=== PATIENT | female | born 1935 | race Caucasian/White ===

== ENCOUNTER 2016-07-31 17:26 | Inpatient (IN) | payer MEDICARE, BC ==
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
--- NOTE | ~2016-07-31 | CR151 ---
[facility] A Service of [facility] & [facility] RADIOLOGY TEXT RESULTS PATIENT: NILE CORRALES LOCATION: [facility] 474 : 36 UNIT #: [id number] AGE: [address]: Ronn Anderson MD SEX: F ORDER DR: [id number] [facility] [address] [place], [place] [address] [id number] I MR#: [id number] Acc #: [id number] NAME: NILE CORRALES : 1935 SEX: F STUDY DATE/TIME: 07/31/2016 18:03 UNIT: [facility] ROOM: [facility] STUDY DESCRIPTION: CR Hip Min 2 Views Rt Attending Physician: Ronn Anderson M.D. Referring Physician: Chris Jones M.D. Ordering Physician: Radha Sibley M.D. Primary Care Physician: Chris Jones M.D. MEDICAL IMAGING REPORT This report is preliminary unless electronic signature is present EXAM AP pelvis with cross-table lateral view of the right hip 07/31/2016 HISTORY 81-year-old female right hip pain after falling today. Cannot move leg. FINDINGS There is a subcapital impacted fracture of the right proximal femur. No hip dislocation is seen. There is mild angulation at the fracture site in anterior direction, best seen on the cross-table lateral view. There is lower lumbar levoscoliosis. No sacroiliac joint consensus diastasis. Left hip appears unremarkable. IMPRESSION Impacted, mildly angulated subcapital fracture of the right femoral neck without hip dislocation. Dictated by... Denisha Teran M.D. THIS IS AN ELECTRONICALLY VERIFIED REPORT Denisha Teran M.D. at 08/01/2016 2:42 PM LLH/pcl TD: 07/31/2016 23:05 JOB #: [id number] MEDICAL IMAGING REPORT COPY
--- NOTE | ~2016-07-31 | CO ---
Unit #: [id number] #: [id number] Patient: NILE CORRALES [id number] [address] [place], [place] [address] [id number] I MR#: [id number] NAME: NILE CORRALES ROOM: 474 Age: 81 Sex: F Admission Date: 07/31/2016 : 1935 Attending Physician: Ronn Anderson M.D. Primary Care Physician: Chris Jones M.D. Consultation Date: 08/01/2016 CONSULTATION REPORT HISTORY OF PRESENT ILLNESS Ms. Corrales is a pleasant 81-year-old female, who was complaining of profound fatigue and saw Dr. Anderson who on evaluation was found that she had severe iron deficiency anemia with a hemoglobin of 5.2, and serum iron less than 5. The patient denies any hematemesis, hematochezia, melena, hematuria, hemoptysis, or menorrhagia. States she has been eating a regular diet. She has been complaining of some mild left upper quadrant pain, but has not had any nausea or vomiting and denies fever or chills. She was admitted and transfused after hemoglobin of 8.6 today. PAST MEDICAL HISTORY Migraine headaches, she has had a temporal artery biopsy, hysterectomy, appendectomy, right oophorectomy, cataract surgery, foot surgery, hypertension, hyperlipidemia, breast cancer, bilateral foot neuromas, skin lesions removed, colonoscopy with polypectomy, previous ectopic . ALLERGIES No allergies to medication. MEDICATIONS Documented on the med reconciliation sheet. FAMILY HISTORY Hypertension. SOCIAL HISTORY Previous smoker. Otherwise, her is in the [facility] and she lives alone. REVIEW OF SYSTEMS As above. PHYSICAL EXAMINATION GENERAL: She is awake, alert, oriented. VITAL SIGNS: Temperature is 98.7, pulse 98 and regular, respirations 16, blood pressure 131/60. HEENT: Unremarkable. CARDIAC: Regular rhythm. LUNGS: Clear. ABDOMEN: Soft. She does guard in the left upper quadrant, but there is no mass or rebound tenderness. EXTREMITIES: No edema. NEUROLOGIC: Grossly intact. Unit #: [id number] #: [id number] Patient: NILE CORRALES DIAGNOSTIC STUDIES LABORATORY RESULTS: Basic metabolic panel was within normal limits. INR is 1.1. Initial hemoglobin 5.2, after transfusion it is 8.6. Serum iron less than 5. Platelets were adequate 385,000. ASSESSMENT AND PLAN The patient with profound and symptomatic iron deficiency anemia. The patient will need endoscopic evaluation. I discussed that with the patient. She has had previous endoscopic evaluation, so she understands and agrees to proceed. Bowel prep has been ordered. Dictated by... Chris Adame M.D. NA/jono TD: 08/01/2016 07:30 JOB #: [id number] CONSULTATION REPORT X Chris Adame MD X CONSULTATION REPORT
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
--- NOTE | ~2016-07-31 | EKG ---
PATIENT: NILE CORRALES UNIT #: [id number] Ventricular Rate: 101 BPM Atrial Rate: 101 BPM P-R Interval: 166 ms QRS Duration: 94 ms Q-T Interval: 348 ms QTC Calculation(Bezet): 451 ms P [place]: 65 degrees Calculated R [place]: -12 degrees Calculated T [place]: 50 degrees Diagnosis Line: Sinus tachycardia Diagnosis Line: Otherwise normal ECG Diagnosis Line: When compared with ECG of 20-JUL-2013 14:05, Diagnosis Line: No significant change was found Diagnosis Line: Confirmed by JUNE COLLADO MD ([id number]) on 08/01/2016 Diagnosis Line: 6:23:02 PM INTERPRETING MD: TOBIAS RAPHAEL
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
--- NOTE | ~2016-07-31 | OR ---
Unit #: [id number] #: [id number] Patient: NILE CORRALES [id number] [address] [address] [id number] I MR#: [id number] NAME: NILE CORRALES ROOM: [facility] Date of Procedure: 08/01/2016 Admission Date: 07/31/2016 Surgeon: Vishal Donaldson M.D. : 1935 Attending Physician: Ronn Anderson M.D. Referring Physician: Chris Jones M.D. Primary Care Physician: Chris Jones M.D. OPERATIVE REPORT PREOPERATIVE DIAGNOSIS Right displaced femoral neck fracture. POSTOPERATIVE DIAGNOSIS Right displaced femoral neck fracture. PROCEDURE PERFORMED Right hip hemiarthroplasty via posterior approach. IMPLANTS Cara Avenir size 5 press-fit stem with a 47 mm unipolar head and -4 mm neck adaptor. AWARD MACHINE OPERATOR Kylie Lambert APRN, SARA. ANESTHESIA General. ESTIMATED BLOOD LOSS 100 mL. COMPLICATIONS None apparent. DRAINS None. SPECIMENS Femoral head to Pathology. INDICATIONS FOR PROCEDURE Ms. Corrales is an 81-year-old female with a history of displaced right femoral neck fracture due to ground level fall. We discussed the right hip hemiarthroplasty. The risks, benefits, and alternatives have been reviewed as was expected recovery. The patient and family elected to proceed. DESCRIPTION OF PROCEDURE The patient was identified in the preoperative holding area. The operative site was marked. The patient was brought to the operating room on her hospital bed. General anesthetic was induced. She was then Unit #: [id number] #: [id number] Patient: NILE CORRALES transferred to the operating table and placed in the lateral decubitus position on a pegboard. All bony prominences were padded. The right hip was prepped and draped in sterile fashion. A standard posterior approach was performed. Then skin was incised sharply and dissection carried down to the fascia. This was divided in line with the skin incision. The fibers of gluteus isabella were bluntly dissected. The underlying bursa was excised. The gluteus medius was identified and dissected with a Michelle elevator. A cobra retractor was placed. The piriformis was identified and released off the piriformis fossa. This was tagged with Ethibond for later repair. The Cobra was then advanced deep to the gluteus minimus. The underlying hip capsule was identified. This was intact. A T-type capsulotomy was performed. The femoral neck was readily identifiable. The femoral head was removed with a 3-prong femoral head extractor. This was sized to a size 47. We trialed a 47 and 48 and selected a size 47 mm head. The femoral neck was then recut approximately 1 cm superior to the lesser trochanter. The hip was then placed in the position of canal preparation. Any remaining soft tissues removed out of the lateral shoulder area. A box osteotome was used to open the femur and femoral canal. This femur was then reamed with a lateralizing rat-tail rasp by hand and then sequentially broached up to a size 4. The size 4 had rotational stability, but then did countersink fairly significantly. We ultimately broached up to a size 5 and trialed up a size 5. We selected the neutral neck length initially. The real stem was then opened and impacted in place. During impaction of the real stem this did not seat quite as deeply as the broach had. It was felt that this was secondary to a slight change inversion with the real implant being slightly less anteversion than the trial. The attempts to back this out to remove this were difficult and it was felt to be at risk for fracturing the femur or further complication. We therefore left the stem in its position, which was satisfactory. We trialed both a neutral and -4. The -4 was stable and the neutral was slightly too long. We therefore dropped down to the -4 neck length adapter for the real implant. This was impacted to the real head, was then impacted in place with again the -4 neck length adapter. The hip was reduced. The hip was stable at 90 degrees of flexion, 10 degrees of adduction, and 60 degrees of internal rotation. The hip was stable to gravity, internal rotation test as well. The wound was then washed with a dilute Betadine solution followed by pulsatile lavage. The hip capsule was closed with three #5 Ethibond sutures. The piriformis was reapproximated through a bone tunnel in the greater trochanter. The fascia was then closed with 0 Vicryl followed by 2-0 Vicryl in the subcutaneous tissue and hanny in the skin. Sterile dressings were applied. The patient was placed into a hip abduction pillow. DISPOSITION Stable to the recovery room. Dictated by... Veda Russell/jono TD: 08/02/2016 08:06 JOB #: [id number] Unit #: [id number] #: [id number] Patient: NILE CORRALES OPERATIVE REPORT X Vishal Donaldson MD X PROCEDURE OPERATIVE NOTE
--- NOTE | ~2016-07-31 | CR72 ---
[facility] A Service of [facility] RADIOLOGY TEXT RESULTS PATIENT: NILE CORRALES LOCATION: [facility] 474-01 : [birth year] UNIT #: [id number] AGE: [address]: Ronn Anderson MD SEX: F ORDER DR: [id number] [facility] [address] [place], [place] [address] [id number] I MR#: [id number] Acc #: [id number] NAME: NILE CORRALES : 1935 SEX: F STUDY DATE/TIME: 07/31/2016 19:40 UNIT: [facility] ROOM: [facility] STUDY DESCRIPTION: CR Chest Single View Portable Attending Physician: Ronn Anderson M.D. Referring Physician: Chris Jones M.D. Ordering Physician: Ronn Anderson M.D. Primary Care Physician: Chris Jones M.D. MEDICAL IMAGING REPORT This report is preliminary unless electronic signature is present EXAM AP portable chest 07/31/2016 at 19:40 HISTORY Fell. Right hip pain today. Preop evaluation for hip surgery. COMPARISON AP portable chest radiograph 07/11/2015. FINDINGS Rounded noncalcified nodular-type density measuring 2.5 cm projects in the right upper lobe. There is a right apical, somewhat nodular thickening and/or airspace disease. These findings are new since October 2008. There are surgical clips in the region right axilla. Heart size is within normal limits. No pleural effusion is seen. IMPRESSION 1. Nodular-type densities are demonstrated within the bilateral lung apices, right greater left. The findings appear new since 07/18/2008. Malignancy cannot be excluded. Dedicated CT chest (preferable with IV contrast if the patient can tolerate) is recommended. 2. Not mentioned above, radiopaque densities project over the right breast and/or chest wall soft tissues thought to represent artifacts external to the patient. Dictated by... Denisha Teran M.D. THIS IS AN ELECTRONICALLY VERIFIED REPORT [facility] A Service of [facility] RADIOLOGY TEXT RESULTS PATIENT: NILE CORRALES LOCATION: [facility] 474-01 : [birth year] UNIT #: [id number] AGE: [address]: Ronn Anderson MD SEX: F ORDER DR: Denisha Teran M.D. at 08/01/2016 2:42 PM LENCHO/karrie TD: 07/31/2016 23:43 JOB #: [id number] MEDICAL IMAGING REPORT COPY
[~2016-07-31 17:26] MED LIST: ACCUPRIL PO; ACCUPRIL40 MG PO; ADVIL200 M1 PO; AMLODIPINE BES2.5 MG PO; ANASTROZOLE1 MG PO; BLOOD PRESSURE; CALAN PO; CERTAGEN PO; CHOLESTEROL; DILTIAZEM 24HR180 M1 PO; LIPITOR20 MG PO; LOPRESSOR PO; LORTAB 101 TAB 10/5 DOB; LORTAB 7.5-5001 TAB PO; METFORMIN PO; METOPROLOL SUCC50 MG PO; MULTI-DAY VITAM1 TAB PO; NEXIUM PO; OMEPRAZOLE20 M1 PO; OMNICEF PO; PRILOSEC20 MG PO; TYLENOL ALLERGY1 T13 PO; TYLENOL SINUS C1 TAB PO; TYLOX 5/500 CAP1 CAP PO; VIT B12; VIT E PO; VITAL-D RX TABL1 TAB PO; VITAMIN B122500 MC1; VITAMIN D1000 UNI1 PO; ZETIA PO; ZOCOR PO; [UNRECOGNIZED DRUG - OTHER]; [UNRECOGNIZED DRUG - REMARK] PO
[2016-07-31 17:29] LABS: BASOPHIL% 0.3 % (0-2.5); EOSINOPHIL% 0.3 % (0.0-7.0); HEMATOCRIT 18.4 % (35.0-45.0); LYMPHOCYTE# 1.2 X10e3 (1.0-3.5); LYMPHOCYTE% 17.3 % (17.0-45.0); MEAN CELL VOLUME 56.7 FL (83-96); MEAN CORPUSCULAR HEMOGLOBIN 16.1 PG (28-34); MEAN CORPUSCULAR HGB CONC 28.4 g/dL (30-36); MEAN PLATELET VOLUME 7.3 FL (6.5-11.5); MONOCYTE# 0.5 X10e3 (0-1.0); MONOCYTE% 7.8 % (3.0-12.0); NEUTROPHIL# 5.1 X10e3 (1.5-7.1); NEUTROPHIL% 74.3 % (40-75); PLATELET COUNT 385 X10e3 (140-420); RED BLOOD COUNT 3.24 X10e (3.90-5.30); RED CELL DISTRIBUTION WIDTH 19.8 % (11.0-15.5); WHITE BLOOD COUNT 6.8 X10e3 (4.0-10.5)
[2016-07-31 17:35] LABS: DIFF IND YES; HEMOGLOBIN 5.2 gm/dL (12.0-16.0)
[2016-07-31 17:37] LABS: INR 1.1; PROTHROMBIN TIME (PATIENT) 11.2 SECONDS (9.6-11.5)
[2016-07-31 17:52] LABS: BLOOD UREA NITROGEN 18 mg/dL (9-23); BUN/CREATININE RATIO 25.71; CALCIUM SERUM 8.8 mg/dL (8.4-10.2); CARBON DIOXIDE 26 mmol/L (22-31); CHLORIDE 108 mmol/L (100-111); CREATININE SERUM 0.7 mg/dL (0.6-1.4); GLOM FILT RATE Estimated ABOVE60 mL/min (>60); GLUCOSE FASTING 108 mg/dL (70-110); POTASSIUM 3.7 mmol/L (3.5-5.1); SODIUM 137 mmol/L (135-145)
[2016-07-31 18:08] LABS: NUCLEATED RED BLOOD CELL 1 /100 (0); PLATELET ESTIMATE NORMAL (NORMAL)
[2016-07-31 18:09] LABS: ANISOCYTOSIS SL
[2016-07-31 18:10] LABS: ELLIPTOCYTES PRESENT
[2016-07-31 18:11] LABS: POC - TROPONIN <0.05 ng/mL (<=0.05)
[2016-07-31 20:13] LABS: FOLATE (FOLIC ACID) 12.4 ng/mL (>5.8); TOTAL IRON BINDING CAPACITY 453 ug/dL (269-535); TRANSFERRIN 324 mg/dL (192-382)
[2016-07-31 20:15] LABS: IRON SERUM <5 ug/dL (28-170); TRANSFERRIN SATURATION 1 % (20-50)
[2016-08-01 05:30] LABS: HEMATOCRIT 27.7 % (35.0-45.0)
[2016-08-01 05:33] LABS: HEMOGLOBIN 8.6 gm/dL (12.0-16.0)
[2016-08-01 14:41] LABS: URINE SOURCE CLEAN CATCH
[2016-08-01 14:50] LABS: URINE APPEARANCE CLOUDY; URINE BILIRUBIN NEG (NEG); URINE BLOOD NEG (NEG); URINE COLOR YELLOW; URINE GLUCOSE NEG (NEG); URINE KETONE NEG (NEG); URINE LEUKOCYTE ESTERASE 2+ (NEG); URINE NITRATE NEG (NEG); URINE PROTEIN NEG (NEG); URINE SPECIFIC GRAVITY 1.018 (1.003-1.035)
[2016-08-01 14:52] LABS: CULTURE INDICATED? YES; URINE BACTERIA AUWI 4+ (NEGATIVE); URINE SQUAMOUS EPITHELIAL CELL NONE SEEN /[HPF]; UWBCS1 AUWI 25-50 (0-5)
[2016-08-01 19:47] LABS: HEMATOCRIT 28.6 % (35.0-45.0); HEMOGLOBIN 8.7 gm/dL (12.0-16.0); MEAN CORPUSCULAR HEMOGLOBIN 20.2 PG (28-34); MEAN CORPUSCULAR HGB CONC 30.2 g/dL (30-36); MEAN PLATELET VOLUME 8.4 FL (6.5-11.5); RED BLOOD COUNT 4.29 X10e (3.90-5.30); RED CELL DISTRIBUTION WIDTH 28.5 % (11.0-15.5)
[2016-08-01 19:52] LABS: MEAN CELL VOLUME 66.8 FL (83-96); WHITE BLOOD COUNT 13.2 X10e3 (4.0-10.5)
[2016-08-02 03:57] LABS: BASOPHIL% 0.1 % (0-2.5); HEMATOCRIT 27.5 % (35.0-45.0); HEMOGLOBIN 8.4 gm/dL (12.0-16.0); LYMPHOCYTE# 0.6 X10e3 (1.0-3.5); MEAN CELL VOLUME 66.9 FL (83-96); MEAN CORPUSCULAR HEMOGLOBIN 20.4 PG (28-34); MEAN CORPUSCULAR HGB CONC 30.5 g/dL (30-36); MEAN PLATELET VOLUME 8.8 FL (6.5-11.5); MONOCYTE# 0.7 X10e3 (0-1.0); MONOCYTE% 6.1 % (3.0-12.0); NEUTROPHIL# 10.4 X10e3 (1.5-7.1); NEUTROPHIL% 88.8 % (40-75); PLATELET COUNT 275 X10e3 (140-420); RED BLOOD COUNT 4.11 X10e (3.90-5.30); RED CELL DISTRIBUTION WIDTH 28.7 % (11.0-15.5); WHITE BLOOD COUNT 11.7 X10e3 (4.0-10.5)
[2016-08-02 03:58] LABS: DIFF IND NO
[2016-08-02 04:21] LABS: BLOOD UREA NITROGEN 8 mg/dL (9-23); BUN/CREATININE RATIO 13.33; CALCIUM SERUM 8.9 mg/dL (8.4-10.2); CARBON DIOXIDE 25 mmol/L (22-31); CHLORIDE 102 mmol/L (100-111); CREATININE SERUM 0.6 mg/dL (0.6-1.4); GLOM FILT RATE Estimated ABOVE60 mL/min (>60); GLUCOSE FASTING 149 mg/dL (70-110); POTASSIUM 4.7 mmol/L (3.5-5.1); SODIUM 135 mmol/L (135-145)
[2016-08-03 03:43] LABS: HEMATOCRIT 24.3 % (35.0-45.0); HEMOGLOBIN 7.4 gm/dL (12.0-16.0); MEAN CELL VOLUME 67.8 FL (83-96); MEAN CORPUSCULAR HEMOGLOBIN 20.7 PG (28-34); MEAN CORPUSCULAR HGB CONC 30.6 g/dL (30-36); MEAN PLATELET VOLUME 8.7 FL (6.5-11.5); RED BLOOD COUNT 3.59 X10e (3.90-5.30); RED CELL DISTRIBUTION WIDTH 29.3 % (11.0-15.5); WHITE BLOOD COUNT 10.9 X10e3 (4.0-10.5)
[2016-08-03 04:04] LABS: BLOOD UREA NITROGEN 8 mg/dL (9-23); CALCIUM SERUM 8.6 mg/dL (8.4-10.2); CARBON DIOXIDE 24 mmol/L (22-31); CHLORIDE 104 mmol/L (100-111); CREATININE SERUM 0.5 mg/dL (0.6-1.4); GLOM FILT RATE Estimated ABOVE60 mL/min (>60); GLUCOSE FASTING 131 mg/dL (70-110); POTASSIUM 4.1 mmol/L (3.5-5.1); SODIUM 133 mmol/L (135-145)
[2016-08-04 02:54] LABS: HEMATOCRIT 30.3 % (35.0-45.0); MEAN CORPUSCULAR HEMOGLOBIN 21.9 PG (28-34); MEAN CORPUSCULAR HGB CONC 31.3 g/dL (30-36); MEAN PLATELET VOLUME 8.4 FL (6.5-11.5); RED BLOOD COUNT 4.34 X10e (3.90-5.30); RED CELL DISTRIBUTION WIDTH 30.5 % (11.0-15.5); WHITE BLOOD COUNT 9.7 X10e3 (4.0-10.5)
[2016-08-04 02:55] LABS: HEMOGLOBIN 9.5 gm/dL (12.0-16.0)
[2016-08-04 03:22] LABS: BLOOD UREA NITROGEN 8 mg/dL (9-23); CALCIUM SERUM 8.5 mg/dL (8.4-10.2); CARBON DIOXIDE 25 mmol/L (22-31); CHLORIDE 100 mmol/L (100-111); CREATININE SERUM 0.5 mg/dL (0.6-1.4); GLOM FILT RATE Estimated ABOVE60 mL/min (>60); GLUCOSE FASTING 112 mg/dL (70-110); MAGNESIUM 2.1 mg/dL (1.6-3.0); POTASSIUM 3.9 mmol/L (3.5-5.1); SODIUM 131 mmol/L (135-145)
[2016-08-05 03:35] LABS: URINE SOURCE CLEAN CATCH
[2016-08-05 03:40] LABS: URINE APPEARANCE CLOUDY; URINE BILIRUBIN NEG (NEG); URINE BLOOD 2+ (NEG); URINE COLOR DK YELLOW; URINE GLUCOSE NEG (NEG); URINE KETONE NEG (NEG); URINE LEUKOCYTE ESTERASE 2+ (NEG); URINE NITRATE NEG (NEG); URINE PH 6.5 (5-8); URINE PROTEIN TRACE (NEG); URINE SPECIFIC GRAVITY 1.022 (1.003-1.035)
[2016-08-05 03:42] LABS: URINE BACTERIA AUWI 1+ (NEGATIVE); URINE SQUAMOUS EPITHELIAL CELL NONE SEEN /[HPF]; UWBCS1 AUWI 50-100 (0-5)
[2016-08-05 04:18] LABS: BASOPHIL% 0.2 % (0-2.5); EOSINOPHIL% 0.6 % (0.0-7.0); HEMOGLOBIN 9.8 gm/dL (12.0-16.0); LYMPHOCYTE# 0.6 X10e3 (1.0-3.5); LYMPHOCYTE% 7.6 % (17.0-45.0); MEAN CELL VOLUME 70.9 FL (83-96); MEAN CORPUSCULAR HEMOGLOBIN 22.3 PG (28-34); MEAN CORPUSCULAR HGB CONC 31.5 g/dL (30-36); MEAN PLATELET VOLUME 8.7 FL (6.5-11.5); MONOCYTE# 0.9 X10e3 (0-1.0); MONOCYTE% 10.9 % (3.0-12.0); NEUTROPHIL# 6.4 X10e3 (1.5-7.1); NEUTROPHIL% 80.7 % (40-75); PLATELET COUNT 240 X10e3 (140-420); RED BLOOD COUNT 4.37 X10e (3.90-5.30); RED CELL DISTRIBUTION WIDTH 31.5 % (11.0-15.5); WHITE BLOOD COUNT 7.9 X10e3 (4.0-10.5)
[2016-08-05 04:19] LABS: DIFF IND NO
[2016-10-01] MEDS ORDERED: MULTI VITAMIN1 EACH PO (15:39)
[2016-10-01] MEDS ORDERED: HYDROCODON-ACE1 EAC7 PO (15:39)
[2016-10-01] MEDS ORDERED: FERROUS GLUCON324 M2 PO (15:40)
[2016-10-01] MEDS ORDERED: SENNA-S TABLET1 EAC1 PO (15:44)
[2016-11-15] MEDS ORDERED: ALEVE220 M1 PO (12:31)
== END 2016-08-05 13:25 | DRG 470 ==
LOC: CED 17:26 → CEDOF 19:04 → C4C 22:17
PROVIDERS: Emergency Medicine; Internal Medicine; Orthopaedic Surgery
PROC: 30233N1 Transfusion of Nonautologous Red Blood Cells into Peripheral Vein, Percutaneous Approach (ICD-10-PCS; 2016-07-31)
PROC: 0SRR0JA Replacement of Right Hip Joint, Femoral Surface with Synthetic Substitute, Uncemented, Open Approach (ICD-10-PCS; principal; 2016-08-01 13:00)
DX: S72.001A Fracture of unspecified part of neck of right femur, initial encounter for closed fracture (principal); N39.0 Urinary tract infection, site not specified; I10 Essential (primary) hypertension; W01.0XXA Fall on same level from slipping, tripping and stumbling without subsequent striking against object, initial encounter; Z91.041 Radiographic dye allergy status; Z85.3 Personal history of malignant neoplasm of breast; Z98.42 Cataract extraction status, left eye; Z98.41 Cataract extraction status, right eye; Z90.710 Acquired absence of both cervix and uterus; G43.909 Migraine, unspecified, not intractable, without status migrainosus; E78.5 Hyperlipidemia, unspecified; M19.90 Unspecified osteoarthritis, unspecified site; Z87.891 Personal history of nicotine dependence; D50.9 Iron deficiency anemia, unspecified; Z86.010 Personal history of colon polyps; Z88.1 Allergy status to other antibiotic agents; R91.8 Other nonspecific abnormal finding of lung field
CPT/HCPCS: 36415; 71010; 71250; 72072; 72170; 73130; 73502; 80048; 81003; 82553; 82607; 82746; 83540; 83550; 83735; 84484; 85014; 85018; 85025; 85027; 85610; 86850; 86900; 86901; 86923; 87086; 93005; 94760; 96374; 96375; 97110; 97116; 97163; 97530; 99284; 99285; C1776; G8978-GP; G8979-GP; J0690; J0696; J1100; J1650; J2250; J2270; J2370; J2405; J2765; J2916; J3010; P9016

== ENCOUNTER → 2016-10-03 | Day surgery (SDC) | payer MEDICARE, BC ==
[~2016-10-03] MED LIST changes: +ALEVE220 M1 PO; +FERROUS GLUCON324 M2 PO; +HYDROCODON-ACE1 EAC7 PO; +MULTI VITAMIN1 EACH PO; +SENNA-S TABLET1 EAC1 PO
--- NOTE | ~2016-10-03 | OR ---
Unit #: [id number] #: [id number] Patient: NILE CORRALES [id number] [address] [place], [place] [address] [id number] O MR#: [id number] NAME: NILE CORRALES ROOM: Date of Procedure: 10/03/2016 Admission Date: 10/03/2016 Surgeon: Bruce Triplett Jr., M.D. : 1935 Attending Physician: Bruce Triplett Jr., M.D. Primary Care Physician: Chris Jones M.D. OPERATIVE REPORT INDICATIONS FOR PROCEDURE The patient is an 81-year-old white female with a known past history of breast cancer and she has remained free of disease with respect to this. She has had some recent problems with dysphagia as well as anemia and it was felt she needed upper and lower endoscopy. She has had no recent scopes. PREOPERATIVE DIAGNOSES Dysphagia, possible esophageal stenosis, anemia, possible gastrointestinal blood loss. POSTOPERATIVE DIAGNOSES On upper endoscopy, the patient was noted to have a Schatzki ring with mild diffuse gastritis and on colonoscopy to the cecum, she was noted to have a fair prep only with extensive diverticulosis and tortuosity of the colon and the questionable polyp just distal to the ileocecal valve area. ANESTHESIA MAC anesthesia. PROCEDURE PERFORMED Flexible fiberoptic esophagogastroduodenoscopy with antral biopsy for Helicobacter pylori and esophageal dilatation with an 18 to 20 mm balloon dilator from 18 to 19 to 20 slowly with the distal esophagus. Also, colonoscopy to the cecum with biopsies of questionable polyp. DESCRIPTION OF PROCEDURE The patient was positioned in [place] position with left side down. After being given MAC anesthesia, Olympus XQ scope was passed through the proximal esophagus. The entire esophagus was examined. Proximal two-thirds appeared normal. In the area of the distal esophagus near the GE junction, there was a small Schatzki ring with mild stenosis. The scope was advanced through the GE junction and the cardia, and down to the fundic and antral region of the stomach, retroflexed back up to the area of the cardia. There was some diffuse patchy areas of mild atrophic gastritis, but no evidence of any gastric ulcer disease. The stomach distended well without evidence of rigidity. The scope was straightened and advanced down the distal stomach, where a biopsy was taken from the antrum for Helicobacter pylori without significant bleeding. The scope was advanced through the pylorus and the duodenal bulb and down to the second portion of the duodenum. The entire duodenal portion examination was within normal limits. The scope was brought back up the area of the Unit #: [id number] #: [id number] Patient: NILE CORRALES. An 18 to 20 mm balloon dilator was then placed in the distal esophagus and the area of the Schatzki ring was dilated from 18 to 19 to 20 mm with minimal bleeding indicating a good stretch. No evidence of any perforation or tears of the esophagus itself. The scope was then slowly removed. The patient repositioned for colonoscopy. Digital rectal examination was performed, which revealed no palpable mass or tenderness. No blood or stool in the rectal ampulla. There were a few external hemorrhoidal tags felt to be of no major significance. The Olympus colonoscope was advanced through the anal canal up the rectum and retroflexed down to the area of the anorectal region. There was no evidence of any fissures. No significant internal hemorrhoids. The scope was then straightened and advanced up in the rectosigmoid, in the sigmoid and descending colon areas, where there was extensive diverticulosis with tortuosity of the left colon. The scope was then advanced around the splenic flexure and the transverse colon, around hepatic flexure and ascending colon, down in the area of the cecum. The light from the tip of the scope could be seen transilluminating through right lower quadrant abdominal wall area. Multiple attempts advancing the scope up the distal ileum were unsuccessful. There was possible early polyp noted in the cecum just distal to the ileocecal valve area. Several biopsies were taken from this without significant bleeding. The scope was then slowly removed. There were no other polyps, no tumors, cancer, or AVMs. No evidence of any colitis or acute diverticulitis. The caliber of the colon appeared normal throughout without evidence of obstruction or narrowing. The scope was removed. The patient tolerated the procedure well and discharged in satisfactory condition. Dictated by... Bruce Triplett Jr., M.D. JMB/jono TD: 10/03/2016 23:34 JOB #: [id number] OPERATIVE REPORT Page 1 of 1 X Bruce Triplett MD PROCEDURE OPERATIVE NOTE
[2016-10-03 12:40] LABS: BASOPHIL% 0.5 % (0-2.5); HEMOGLOBIN 11.3 gm/dL (12.0-16.0); LYMPHOCYTE# 0.4 X10e3 (1.0-3.5); LYMPHOCYTE% 5.8 % (17.0-45.0); MEAN CELL VOLUME 81.8 FL (83-96); MEAN CORPUSCULAR HEMOGLOBIN 26.4 PG (28-34); MEAN CORPUSCULAR HGB CONC 32.2 g/dL (30-36); MEAN PLATELET VOLUME 8.4 FL (6.5-11.5); MONOCYTE# 0.4 X10e3 (0-1.0); NEUTROPHIL# 6.8 X10e3 (1.5-7.1); NEUTROPHIL% 88.7 % (40-75); PLATELET COUNT 310 X10e3 (140-420); RED BLOOD COUNT 4.27 X10e (3.90-5.30); RED CELL DISTRIBUTION WIDTH 22.3 % (11.0-15.5); WHITE BLOOD COUNT 7.7 X10e3 (4.0-10.5)
[2016-10-03 12:42] LABS: DIFF IND YES
[2016-10-03 12:59] LABS: HYPOCHROMIA MOD; PLATELET ESTIMATE NORMAL (NORMAL)
[2016-10-03 13:00] LABS: POIKILOCYTOSIS SL; SCHISTOCYTES PRESENT; TARGET CELLS SL
== END | disposition home or self-care (01) ==
LOC: COPS 11:27
PROVIDERS: Surgery
DX: C18.0 Malignant neoplasm of cecum (principal); K29.40 Chronic atrophic gastritis without bleeding; K22.2 Esophageal obstruction; K57.30 Diverticulosis of large intestine without perforation or abscess without bleeding; K56.2 Volvulus; D64.9 Anemia, unspecified; I10 Essential (primary) hypertension; E78.5 Hyperlipidemia, unspecified; E78.00 Pure hypercholesterolemia, unspecified; M81.0 Age-related osteoporosis without current pathological fracture; M19.90 Unspecified osteoarthritis, unspecified site; G89.29 Other chronic pain; M54.9 Dorsalgia, unspecified; Z85.3 Personal history of malignant neoplasm of breast; Z87.01 Personal history of pneumonia (recurrent); Z87.891 Personal history of nicotine dependence; Z88.1 Allergy status to other antibiotic agents; Z88.8 Allergy status to other drugs, medicaments and biological substances; Z91.041 Radiographic dye allergy status; Z79.891 Long term (current) use of opiate analgesic; Z79.899 Other long term (current) drug therapy; Z90.49 Acquired absence of other specified parts of digestive tract; Z90.710 Acquired absence of both cervix and uterus
CPT/HCPCS: 85025; 87077; 88305

== ENCOUNTER → 2016-11-15 | Outpatient (CLI) | payer MEDICARE, BC ==
[2016-11-15 13:22] LABS: HEMATOCRIT 24.9 % (35.0-45.0); HEMOGLOBIN 7.7 gm/dL (12.0-16.0); MEAN CELL VOLUME 81.9 FL (83-96); MEAN CORPUSCULAR HEMOGLOBIN 25.4 PG (28-34); MEAN PLATELET VOLUME 6.9 FL (6.5-11.5); RED BLOOD COUNT 3.04 X10e (3.90-5.30); RED CELL DISTRIBUTION WIDTH 16.4 % (11.0-15.5); WHITE BLOOD COUNT 15.8 X10e3 (4.0-10.5)
[2016-11-15 13:49] LABS: CALCIUM SERUM 9.1 mg/dL (8.4-10.2); CREATININE SERUM 0.8 mg/dL (0.6-1.4); GLOM FILT RATE Estimated 69.7 mL/min (>60); POTASSIUM 4.4 mmol/L (3.5-5.1)
== END | disposition home or self-care (01) ==
LOC: CAMB 11-08 12:00
PROVIDERS: Surgery
DX: Z01.812 Encounter for preprocedural laboratory examination (principal)
CPT/HCPCS: 36415; 80048; 85027

== ENCOUNTER 2016-11-22 05:59 | Inpatient (IN) | payer MEDICARE, BC ==
--- NOTE | ~2016-11-22 | A ---
[facility] Nutrition Therapy DATE: 11/27/16 Patient: NILE CORRALES Physician: BRENDA Address: [address] Room/Bed: [address] [place] [address], Zip: [place] [address] Admit Date: 11/22/16 Date of : [birth year] Height: 5 2 Weight: 110 50 NUTRITIONAL ASSESSMENT: REASON: CONSULT RE: POOR NUTRITION PT IS 81 Y.O. FEMALE ADMITTED FOR COLON CA, ANEMIA PMH: COLON CA S/P (R) HEMICOLECTOMY, BREAST CA, GERD, HTN, HLD, KIDNEY STONES Anthropometrics: 5'2", WT: 110# (50 KG), BMI: 20.1 Labs: BUN: 7, NA+:133, CA+:7.6, ALB: 1.6 Meds: PROTONIX, KCL, MAG SULFATE, PHENERGAN, ZOFRAN, NACL I/O & Bowel function: 1630/3 Skin Integrity: DRY SKIN NOTED ALL OVER BODY Estimated Nutrition Needs: [id number] KCAL (28-32 KCAL/KG BW) 60-75 G PRO (1.2-1.5 G PRO/KG BW) FLUIDS CONSISTENT W/KCAL NEEDS OR MANAGE PER MD Assessment: CHART REVIEWED AND EVENTS NOTED. PT SEEN FOR CONSULT. PT IS S/P (R) COLECTOMY. PT FEELING NAUSEOUS AT TIME OF VISIT REPORTING POOR PO INTAKE 2' DECREASED APPETITE PAST SEVERAL MONTHS. PT REPORTS DECREASED APPETITE SINCE JUNE 2016 SINCE TAKING CARE OF HER (FEELING STRESSED). PT ADDS FEELING TIRED, WEAK AND NOTING DIFFICULTY SWALLOWING. PT NOTES UBW IS ~130#, NOTES LOSING WEIGHT PAST SEVERAL MONTHS. OF NOTE, BUSINESS REPORTER FOLLOWING AND HAS RECOMMENDED A SLICK DIET + THIN LIQUIDS. THIS RD ENCOURAGED FREQUENT SMALL MEALS (HIGH KCAL AND PROTEIN) + SUPPLEMENT INTAKE, PT AGREED TO ENSURE PUDDING BID WELL ENSURE SHAKES (PT DRINKS BOOST SHAKES AT HOME). , RD TO ORDER. PT REPORTED NO DIET QUESTIONS AT THIS TIME. RD TO FOLLOW. SEE RECOMMENDATIONS BELOW. Dx: INADEQUATE PROTEIN-ENERGY INTAKE R/T DECREASED APPETITE, DIFFICULTY SWALLOWING AEB PT REPORT ABOVE, ~20# WEIGHT LOSS NOTED PAST SEVERAL MONTHS. Intervention: 1. SLICK DIET + THINS 2. ENSURE PUDDING BID + ENSURE SHAKES BID Monitoring, Evaluation and Goals: 1. ORAL INTAKE; CONSUME/TOLERATE >50% OF MEALS AND SUPPLEMENTS 2. WEIGHTS; PREVENT FURTHER WEIGHT LOSS; PROMOTE WEIGHT MAINTENANCE 3. LABS; WNL 4. GI; PROMOTE REGULAR GI FUNCTION [facility] Nutrition Therapy DATE: 11/27/16 Patient: NILE CORRALES Physician: BRENDA Address: [address] Room/Bed: [address] [place] [address], Zip: [place] [address] Admit Date: 11/22/16 Date of : [birth year] Height: 5 2 Weight: 110 50 MONITOR: -PO INTAKE/APPETITE -WEIGHTS -SUPPLEMENT INTAKE -ALTERNATIVE NUTRITION? Recommendations: 1. PLEASE ORDER VANILLA ENSURE PUDDING BID + VANILLA ENSURE SHAKES BID W/MEALS 2. APPRECIATE FAMILY AND STAFF TO ENCOURAGE PO INTAKE, ASSIST W/ORDERING MEALS NEEDED 3. CONSIDER ADDING APPETITE STIMULANT, SUCH MEGACE, TO STIMULATE PO INTAKE 4. IF PT UNABLE TO TOLERATE PO INTAKE, CONSIDER PLACING PEG/DHT AND BEGIN ALTERNATIVE NUTRITION SUPPORT OF JEVITY 1.5 @ 20 ML/HR, ADVANCE 10 ML q 6 HOURS TO GOAL RATE OF 45 ML/HR -PROVIDES 1620 KCAL, 69 G PRO, 821 ML FREE H20 ADD FREE H20 FLUSHES OF 200 ML q 6 HOURS TO MEET PT'S CURRENT ESTIMATED FLUIDS NEEDS RD WILL F/U PER PROTOCOL PT IS MODERATELY COMPROMISED Respectfully, DIANA CANSECO MS, RD, LD Food and Nutritional Services [facility] cc: client file
--- NOTE | ~2016-11-22 | DS ---
Unit #: [id number] #: [id number] Patient: NILE CORRALES [id number] [address] [address] [id number] I MR#: [id number] NAME: NILE CORRALES ROOM: [facility] Age: 81 Sex: F Admission Date: 11/22/2016 : 1935 Discharge Date: 12/01/2016 Attending Physician: Bruce Triplett Jr., M.D. Primary Care Physician: Chris Jones M.D. DISCHARGE SUMMARY ADMITTING AND FINAL DIAGNOSIS Cancer of the cecum. SECONDARY DIAGNOSES 1. Chronic anemia. 2. Past history of breast cancer. 3. Gastroesophageal reflux disease. 4. Hypertension. 5. Past history of kidney stones. PROCEDURES PERFORMED Right colectomy on day of admission. 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 A long discussion was taken with her in the office and she elected to come in for resection of her right colon for this. Physical examination on admission, except for noting the patient is thin and near cachectic in appearance was not remarkable. Admitting laboratory values showed hemoglobin was low in the range of 9, but otherwise was not remarkable. HOSPITAL COURSE The patient was brought in an underwent right colectomy through a limited incision of the right lower quadrant of the abdomen. Postoperatively the patient developed some ileus and general debility. It was felt that she should be placed in rehab and she desires placement at the [facility] for convalescence. At present she is tolerating a diet, but has a fairly poor appetite, which is normal for her. She is ambulating well. Her wound is clean and healing well. [place] have been removed and the wound Steri-Stripped. She is having bowel movements. PLAN Discharge the patient to the [facility]. DISCHARGE MEDICATIONS Home medications. FOLLOWUP She will be calling the office for a follow-up appointment in approximately two weeks. DISCHARGE INSTRUCTIONS Unit #: [id number] #: [id number] Patient: NILE CORRALES She will be on limited lifting DIET Regular diet. Dictated by... Bruce Triplett Jr., M.D. GREGG/abigail ALVARADO: 12/01/2016 07:22 TD: 12/01/2016 08:50 JOB #: [id number] DISCHARGE SUMMARY Page 1 of 1 X Bruce Triplett MD DISCHARGE SUMMARY
--- NOTE | ~2016-11-22 | CO ---
Unit #: [id number] #: [id number] Patient: NILE CORRALES [id number] [address] [place], [place] [address] [id number] MR#: [id number] NAME: NILE CORRLAES. ROOM: 472 Age: 81 Sex: F Admission Date: 11/22/2016 : 1935 Attending Physician: Bruce Triplett Jr., M.D. Primary Care Physician: Chris Jones M.D. Consultation Date: 11/25/2016 CONSULTATION REPORT REASON FOR EVAL Colon cancer, please evaluate. 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 Underwent right hemicolectomy, recuperating very well. Has severe iron deficiency anemia and history of early breast cancer in 2013. Today, on questioning, she states that she is feeling much better. She still has the postoperative discomfort but voices no new complaints. PAST HISTORY Remarkable for: 1. Cataract surgery. 2. Hysterectomy. 3. Appendicectomy. 4. Bilateral foot surgeries. 5. Breast cancer surgery. 6. Recent colectomy. FAMILY HISTORY Negative for cluster of cancers. SOCIAL HISTORY She lives in a custodial. She used to smoke, currently she has quit smoking over a decade ago. No alcohol, no drugs. ALLERGIES Levaquin. CHRONIC MEDICATIONS 1. Vitamin E. 2. Advil. 3. Aleve. 4. B12. 5. Cardizem. 6. Amlodipine. 7. Anastrazole. 8. Omeprazole. 9. Lopressor. REVIEW OF SYSTEMS Mainly remarkable for this recent event but previously she was getting extremely tired, shortness of breath on exertion. All the signs and Unit #: [id number] #: [id number] Patient: NILE CORRALES symptoms of symptomatic anemia. Otherwise, six or eight systems were within normal limits. PHYSICAL EXAMINATION GENERAL: Asthenic lady, very pleasant. No palpable nodes. LUNGS: Clear. CARDIOVASCULAR: Distant S1 and S2 regular. ABDOMEN: Evidence of recent surgery. METAL ENGRAVER: Grossly intact. PELVIC/BREAST EXAM: Not performed. DIAGNOSTIC STUDIES LABORATORY: CBC - hemoglobin 6.7, hematocrit 21.2, white count 8800, platelets 284,000. Sodium 130, potassium 3.2, chloride 104, CO2 24, glucose 105, BUN 8, creatinine 0.7. Pathology is still pending. 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 She has undergone right hemicolectomy. The final pathology is pending. PLAN I had a long discussion with her regarding value of IV iron. Agree with two units of packed RBC because hemoglobin is below 7 followed by Ferrlecit 250 mg IV daily for three days. CBC and CEA and we will await pathology results and discuss further with her. In case she is discharged before completion of the IV iron, then we will schedule outpatient followup, recheck those parameters and give her iron as needed and see if she will need a PET scan or not depending on the stage of the pathology. Dictated by... Veda Gregory/gregorio TD: 11/25/2016 11:32 JOB #: [id number] CONSULTATION REPORT Page 1 of 1 X Eren Prince MD X CONSULTATION REPORT
--- NOTE | ~2016-11-22 | OR ---
Unit #: [id number] #: [id number] Patient: NILE CORRALES [id number] [address] [place], [place] [address] [id number] MR#: [id number] NAME: NILE CORRALES ROOM: 472 Date of Procedure: 11/22/2016 Admission Date: 11/22/2016 Surgeon: Bruce Triplett Jr., M.D. : 1935 Attending Physician: Bruce Triplett Jr., M.D. Primary Care Physician: Chris Jones M.D. OPERATIVE REPORT INDICATIONS FOR PROCEDURE The patient is an 81-year-old white female, who recently underwent colonoscopy and workup for anemia, was noted to have evidence of what appeared to be a malignant polyp of the cecum. 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 She is brought in this time for this procedure at her request. She understands the procedure including the risks, including that of anastomotic leak, bleeding, infection, abscess formation, and recurrence of her cancer and consents. PREOPERATIVE DIAGNOSIS Malignant polyp of the right colon. 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 Also noted were multiple intra-abdominal adhesions that required approximately 20 minutes of lysis of adhesions. ANESTHESIA General with endotracheal intubation with 0.5% Marcaine with epinephrine locally. PROCEDURE PERFORMED Exploratory laparotomy through right lower quadrant incision with partial right colectomy and [id number] GABRIEL anastomosis between the distal ileum and the distal ascending colon. DESCRIPTION OF PROCEDURE The patient was positioned in supine position. After being anesthetized and intubated, she was prepped and draped in routine fashion for right colectomy. A vertical incision was made through her right lower quadrant abdominal incision from her previous appendectomy and this was approximately 4 to 5 inches in length. This was carried down through subcutaneous tissue down to the external oblique fascia. The fibers of the external oblique and internal oblique were split in the direction in which they run and the peritoneum was then lifted between 2 hemostats and incised. Upon opening the peritoneal cavity, there was no free intra-abdominal fluid. The remaining of our incision was opened with a cutting edge of the Bovie cautery. Intra-abdominal exploration was carried out in the right lower quadrant and there were multiple intra-abdominal adhesions, especially towards the midline. The distal Unit #: [id number] #: [id number] Patient: NILE CORRALES ileum was freed up along with the right colon and there was a palpable cancer within the colon as well as multiple diverticula. The distal ileum was transected and stapled with a GABRIEL stapling device and the distal ascending colon likewise was stapled, then transected with GABRIEL stapling device. A good portion of the mesentery was wedged and vessels clamped, divided and ligated with 0 silk sutures. 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 After irrigating the abdomen, the colon was brought up and anastomosed [id number] to the distal ileum with a GABRIEL stapling device. Staple line was checked and noted to be hemostatic with no evidence of any bleeding. The remaining opening was closed with a continuous 2-0 canal stitch followed by interrupted 3-0 silk Lembert sutures. The abdomen was copiously irrigated again with saline solution. After total hemostasis was noted, the peritoneum was closed with continuous 2-0 Vicryl stitch. The internal oblique muscle was closed and approximated with interrupted #1 Vicryl sutures and the external oblique fascia was closed with continuous #1 Vicryl suture. The wound was then closed with continuous 2-0 Vicryl stitch after irrigation. Skin edges were approximated with stainless-steel skin clips and skin stapling device. Sterile dressings were applied externally. Estimated blood loss less than 100 mL. The patient received less than 2000 mL of crystalloid solution during the procedure. She also received 1 unit of packed cells. Sponge and instrument counts were correct x3. No drains used. No complications. The patient was taken to the recovery room with stable vital signs in satisfactory condition. Dictated by... Bruce Triplett Jr., M.D. JMB/jono TD: 11/23/2016 02:01 JOB #: [id number] OPERATIVE REPORT Page 1 of 1 X Bruce Triplett MD X PROCEDURE OPERATIVE NOTE
[2016-11-22 07:04] LABS: HEMATOCRIT 23.9 % (35.0-45.0); HEMOGLOBIN 7.5 gm/dL (12.0-16.0); MEAN CELL VOLUME 79.9 FL (83-96); MEAN CORPUSCULAR HGB CONC 31.4 g/dL (30-36); RED BLOOD COUNT 2.99 X10e (3.90-5.30); WHITE BLOOD COUNT 16.2 X10e3 (4.0-10.5)
[2016-11-23 07:25] LABS: BASOPHIL% 0.2 % (0-2.5); EOSINOPHIL% 0.3 % (0.0-7.0); HEMATOCRIT 24.1 % (35.0-45.0); HEMOGLOBIN 7.6 gm/dL (12.0-16.0); LYMPHOCYTE# 0.7 X10e3 (1.0-3.5); LYMPHOCYTE% 6.3 % (17.0-45.0); MEAN CELL VOLUME 82.9 FL (83-96); MEAN CORPUSCULAR HEMOGLOBIN 26.1 PG (28-34); MEAN CORPUSCULAR HGB CONC 31.5 g/dL (30-36); MEAN PLATELET VOLUME 7.1 FL (6.5-11.5); MONOCYTE# 0.6 X10e3 (0-1.0); MONOCYTE% 5.2 % (3.0-12.0); NEUTROPHIL# 9.4 X10e3 (1.5-7.1); RED BLOOD COUNT 2.91 X10e (3.90-5.30); WHITE BLOOD COUNT 10.7 X10e3 (4.0-10.5)
[2016-11-23 07:26] LABS: DIFF IND YES
[2016-11-23 07:48] LABS: ALBUMIN SERUM 1.8 g/dL (3.5-5.0); ALKALINE PHOSPHATASE 75 U/L (32-92); ALT (SGPT) 15 U/L (10-40); AST (SGOT) 13 U/L (10-42); BLOOD UREA NITROGEN 18 mg/dL (9-23); CALCIUM SERUM 7.9 mg/dL (8.4-10.2); CARBON DIOXIDE 23 mmol/L (22-31); CHLORIDE 103 mmol/L (100-111); GLOM FILT RATE Estimated 53.2 mL/min (>60); GLUCOSE FASTING 154 mg/dL (70-110); POTASSIUM 3.6 mmol/L (3.5-5.1); PROTEIN TOTAL SERUM 5.6 g/dL (6.0-8.3); SODIUM 137 mmol/L (135-145)
[2016-11-23 07:50] LABS: BILIRUBIN,TOTAL <0.1 mg/dL (0.2-2.0)
[2016-11-23 09:00] LABS: PLATELET ESTIMATE NORMAL (NORMAL)
[2016-11-23 09:01] LABS: ANISOCYTOSIS SL; HYPERSEGMENTED POLYS PRESENT; HYPOCHROMIA MOD; ROULEAUX SLIGHT
[2016-11-23 09:02] LABS: TOXIC GRANULATION SL
[2016-11-23 09:03] LABS: PLATELET COUNT 352 X10e3 (140-420)
[2016-11-24 04:10] LABS: HEMOGLOBIN 7.8 gm/dL (12.0-16.0); MEAN CELL VOLUME 82.8 FL (83-96); MEAN CORPUSCULAR HEMOGLOBIN 25.7 PG (28-34); MEAN CORPUSCULAR HGB CONC 31.1 g/dL (30-36); MEAN PLATELET VOLUME 7.1 FL (6.5-11.5); RED BLOOD COUNT 3.02 X10e (3.90-5.30); RED CELL DISTRIBUTION WIDTH 16.1 % (11.0-15.5); WHITE BLOOD COUNT 11.4 X10e3 (4.0-10.5)
[2016-11-25 03:26] LABS: HEMATOCRIT 21.2 % (35.0-45.0); MEAN CELL VOLUME 81.6 FL (83-96); MEAN CORPUSCULAR HEMOGLOBIN 25.9 PG (28-34); MEAN CORPUSCULAR HGB CONC 31.7 g/dL (30-36); RED BLOOD COUNT 2.6 X10e (3.90-5.30); RED CELL DISTRIBUTION WIDTH 16.2 % (11.0-15.5); WHITE BLOOD COUNT 8.8 X10e3 (4.0-10.5)
[2016-11-25 03:28] LABS: HEMOGLOBIN 6.7 gm/dL (12.0-16.0)
[2016-11-25 04:01] LABS: ALBUMIN SERUM 1.6 g/dL (3.5-5.0); BILIRUBIN,TOTAL 0.4 mg/dL (0.2-2.0); BUN/CREATININE RATIO 11.42; CALCIUM SERUM 7.8 mg/dL (8.4-10.2); CREATININE SERUM 0.7 mg/dL (0.6-1.4); GLOM FILT RATE Estimated 81.8 mL/min (>60); POTASSIUM 3.2 mmol/L (3.5-5.1); PROTEIN TOTAL SERUM 4.9 g/dL (6.0-8.3)
[2016-11-26 03:23] LABS: BASOPHIL% 0.2 % (0-2.5); EOSINOPHIL# 0.1 X10e3 (0-0.7); EOSINOPHIL% 0.5 % (0.0-7.0); HEMATOCRIT 28.8 % (35.0-45.0); LYMPHOCYTE# 0.5 X10e3 (1.0-3.5); LYMPHOCYTE% 4.2 % (17.0-45.0); MEAN CELL VOLUME 83.1 FL (83-96); MEAN CORPUSCULAR HEMOGLOBIN 27.2 PG (28-34); MEAN CORPUSCULAR HGB CONC 32.7 g/dL (30-36); MEAN PLATELET VOLUME 7.2 FL (6.5-11.5); MONOCYTE# 0.8 X10e3 (0-1.0); MONOCYTE% 6.7 % (3.0-12.0); NEUTROPHIL# 10.4 X10e3 (1.5-7.1); NEUTROPHIL% 88.4 % (40-75); PLATELET COUNT 284 X10e3 (140-420); RED BLOOD COUNT 3.47 X10e (3.90-5.30); RED CELL DISTRIBUTION WIDTH 16.3 % (11.0-15.5); WHITE BLOOD COUNT 11.7 X10e3 (4.0-10.5)
[2016-11-26 03:33] LABS: DIFF IND NO; HEMOGLOBIN 9.4 gm/dL (12.0-16.0)
[2016-11-26 04:02] LABS: ALBUMIN SERUM 1.6 g/dL (3.5-5.0); BILIRUBIN,TOTAL 0.5 mg/dL (0.2-2.0); CALCIUM SERUM 7.6 mg/dL (8.4-10.2); CREATININE SERUM 0.7 mg/dL (0.6-1.4); GLOM FILT RATE Estimated 81.8 mL/min (>60); POTASSIUM 3.2 mmol/L (3.5-5.1)
[2016-11-27 03:22] LABS: BASOPHIL% 0.2 % (0-2.5); EOSINOPHIL# 0.1 X10e3 (0-0.7); EOSINOPHIL% 0.4 % (0.0-7.0); HEMATOCRIT 32.5 % (35.0-45.0); HEMOGLOBIN 10.4 gm/dL (12.0-16.0); LYMPHOCYTE# 0.5 X10e3 (1.0-3.5); LYMPHOCYTE% 4.1 % (17.0-45.0); MEAN CELL VOLUME 83.5 FL (83-96); MEAN CORPUSCULAR HEMOGLOBIN 26.7 PG (28-34); MEAN PLATELET VOLUME 7.1 FL (6.5-11.5); MONOCYTE# 0.8 X10e3 (0-1.0); MONOCYTE% 6.2 % (3.0-12.0); NEUTROPHIL# 11.1 X10e3 (1.5-7.1); NEUTROPHIL% 89.1 % (40-75); PLATELET COUNT 295 X10e3 (140-420); RED CELL DISTRIBUTION WIDTH 16.7 % (11.0-15.5); WHITE BLOOD COUNT 12.5 X10e3 (4.0-10.5)
[2016-11-27 03:25] LABS: DIFF IND NO
[2016-11-27 03:37] LABS: POTASSIUM 3.3 mmol/L (3.5-5.1)
[2016-11-29 03:44] LABS: MAGNESIUM 1.8 mg/dL (1.6-3.0); POTASSIUM 3.3 mmol/L (3.5-5.1)
[2016-11-30 03:06] LABS: HEMATOCRIT 30.3 % (35.0-45.0); HEMOGLOBIN 9.7 gm/dL (12.0-16.0); MEAN CELL VOLUME 84.1 FL (83-96); MEAN CORPUSCULAR HEMOGLOBIN 26.9 PG (28-34); MEAN PLATELET VOLUME 7.3 FL (6.5-11.5); RED BLOOD COUNT 3.6 X10e (3.90-5.30); RED CELL DISTRIBUTION WIDTH 17.8 % (11.0-15.5); WHITE BLOOD COUNT 12.6 X10e3 (4.0-10.5)
[2016-11-30 03:29] LABS: MAGNESIUM 1.9 mg/dL (1.6-3.0); POTASSIUM 3.7 mmol/L (3.5-5.1)
[2016-12-01 04:09] LABS: MAGNESIUM 2.1 mg/dL (1.6-3.0); POTASSIUM 3.5 mmol/L (3.5-5.1)
== END 2016-12-01 12:11 | DRG 330 ==
LOC: CSUR 05:59 → CPACUOF 09:30 → C4C 09:30 → CPACUOF 10:04 → CSUR 10:04 → C4C 10:45 → CPACUOF 10:45 → C4C 12-01 12:11
PROVIDERS: Surgery
PROC: 0DBH0ZZ Excision of Cecum, Open Approach (ICD-10-PCS; 2016-11-22)
PROC: 30233N1 Transfusion of Nonautologous Red Blood Cells into Peripheral Vein, Percutaneous Approach (ICD-10-PCS; principal; 2016-11-22 07:30)
DX: C18.0 Malignant neoplasm of cecum (principal); D62 Acute posthemorrhagic anemia; K56.7 Ileus, unspecified; I10 Essential (primary) hypertension; Z88.8 Allergy status to other drugs, medicaments and biological substances; Z88.1 Allergy status to other antibiotic agents; Z91.041 Radiographic dye allergy status; Z87.442 Personal history of urinary calculi; E78.5 Hyperlipidemia, unspecified; Z85.3 Personal history of malignant neoplasm of breast; Z87.891 Personal history of nicotine dependence; K21.9 Gastro-esophageal reflux disease without esophagitis; M81.0 Age-related osteoporosis without current pathological fracture; Z98.49 Cataract extraction status, unspecified eye; Z90.710 Acquired absence of both cervix and uterus; Z90.49 Acquired absence of other specified parts of digestive tract; Z80.0 Family history of malignant neoplasm of digestive organs; K57.90 Diverticulosis of intestine, part unspecified, without perforation or abscess without bleeding
CPT/HCPCS: 74230; 80053; 82378; 83735; 84132; 84295; 85025; 85027; 86850; 86900; 86901; 86923; 88309; 88331; 92610; 92611; 94760; 94761; 94762; 97116; 97163; 97166; 97530; 97535; G8978-GP; G8979-GP; G8987-GO; G8988-GO; G8996-GN; G8997-GN; G8998-GN; J1650; J2270; J2405; J2543; J2550; J2710; J2765; J2916; J3010; J3475; P9016